=== PATIENT | female | born 1955 | race Caucasian/White ===

== ENCOUNTER 2022-03-10 17:28 | Emergency (ER) | payer MEDICAID | END 2022-03-10 20:43 | disposition home or self-care (01) | LOC: JP.ED 17:28 | DX: S29.012A Strain of muscle and tendon of back wall of thorax, initial encounter (principal); I10 Essential (primary) hypertension; X50.0XXA Overexertion from strenuous movement or load, initial encounter | CPT/HCPCS: 36415; 74176; 80053; 81001; 85025; 86140; 99284-25 ==

== ENCOUNTER 2023-01-19 19:52 | Emergency (ER) | payer MEDICARE, MEDICAID | END 2023-01-19 21:19 | disposition home or self-care (01) | LOC: JP.ED 19:52 | DX: S42.212A Unspecified displaced fracture of surgical neck of left humerus, initial encounter for closed fracture (principal); I10 Essential (primary) hypertension; Z72.0 Tobacco use; W00.0XXA Fall on same level due to ice and snow, initial encounter | CPT/HCPCS: 73060-26-LT; 73060-LT; 99284 ==